=== PATIENT | male | born 1995 | race Two or more races ===

== ENCOUNTER 2022-05-13 10:15 | Emergency (ER) | payer OTHER ==
[~2022-05-13] VITALS: Ht 170.2 cm; Wt 80.9 kg
[2022-05-13] MEDS ORDERED: ACETAMINOPHEN TAB 650MG DOSE (2X325MG) PO ONE (11:15)
[2022-05-13] MEDS ORDERED: PRED20TA PO (11:40)
[2022-05-13] MEDS ORDERED: AMOX875T2 PO (11:40)
[2022-05-13 11:58] VITALS: BP 143/67
[2022-05-13 12:13] LABS: RSV AMPLIFICATION NEGATIVE (NEGATIVE)
== END 2022-05-13 12:00 | disposition home or self-care (01) ==
LOC: M ED 10:15
DX: J36 Peritonsillar abscess (principal); Z79.899 Other long term (current) drug therapy

== ENCOUNTER 2024-08-21 00:14 | Emergency (ER) | payer OTHER ==
[~2024-08-21] VITALS: Ht 170.2 cm; Wt 77.4 kg
[~2024-08-21 00:14] MED LIST: AMOX875T2 PO; PRED20TA PO
[2024-08-21] MEDS ORDERED: AMOX875T2 PO (01:37)
[2024-08-21] MEDS: IBUPROFEN 600MG TAB PO ONE (01:55)
[2024-08-21 01:59] VITALS: BP 122/64; TEMP 98.7; O2SAT 97
== END 2024-08-21 02:00 | disposition home or self-care (01) ==
LOC: M ED 00:14
DX: S61.237A Puncture wound without foreign body of left little finger without damage to nail, initial encounter (principal); W55.01XA Bitten by cat, initial encounter; Y92.009 Unspecified place in unspecified non-institutional (private) residence as the place of occurrence of the external cause; Y93.89 Activity, other specified; Y99.9 Unspecified external cause status; Z79.2 Long term (current) use of antibiotics